=== PATIENT | female | born 1990 | race Asian ===

== ENCOUNTER 2018-08-31 15:09 | Emergency (ER) | payer OTHER ==
[~2018-08-31] VITALS: Ht 157.5 cm; Wt 68.2 kg
[2018-08-31 15:15] VITALS: BP 141/63
[2018-08-31] MEDS ORDERED: HYDROcodone/acetaminophen 5mg/325mg tablet PO ONE (15:45)
[2018-08-31] MEDS ORDERED: amox tr/potassium clavulanate 875/125mg TAB PO ONE (15:45)
[2018-08-31] MEDS ORDERED: AMOX-422 PO (15:51)
== END 2018-08-31 16:11 | disposition home or self-care (01) ==
LOC: ER 15:10
DX: S01.25XA Open bite of nose, initial encounter (principal); Z79.899 Other long term (current) drug therapy; W54.0XXA Bitten by dog, initial encounter; Y93.89 Activity, other specified; Y92.89 Other specified places as the place of occurrence of the external cause; Y99.8 Other external cause status
CPT/HCPCS: 99283